=== PATIENT | female | born 1975 | race Hispanic/Latino ===

== ENCOUNTER 2019-10-03 14:38 | Outpatient (CLI) | payer OTHER ==
--- NOTE | 2019-10-03 15:18 | RAD ---
RIGHT SHOULDER THREE VIEWS: 10/03/19 HISTORY: Shoulder pain. No signs of fracture or dislocation. No evidence of any significant arthritic change. Minimal arthros is of the AC joint. IMPRESSION: Essentially unremarkable shoulder. If internal derangement is clinically suspected, MRI may be helpfu l in further assessment. POS: [facility]
== END 2019-10-03 14:39 | disposition home or self-care (01) ==
LOC: MADRAD 14:38
PROVIDERS: ATTEND Family Medicine
DX: M75.41 Impingement syndrome of right shoulder (principal)